=== PATIENT | female | born 1940 | race Caucasian/White ===

== ENCOUNTER 2019-10-29 00:41 | Day surgery (SDC) | payer OTHER, SELFPAY ==
[2019-10-28 14:42] VITALS: BMI 32.9
[2019-10-29] MEDS: LACTATED RINGERS 1,000 ML 150 ML IV CONT (07:54)
[2019-10-29 07:59] VITALS: BP 168/65; PULSE 80; RESP 18; TEMP 36.8; O2SAT 100; BMI 31.6
--- NOTE | 2019-10-29 08:09 | WPDANESEPPF ---
Anes - Initial Pre Proc Eval Procedure: Operation Date: 10/29/19 08:30 Proposed Procedures p Colonoscopy - Al Fernandez MD Date/Time: 10/29/19 08:09 Surgeon: Al Fernandez MD Pre Op Diagnosis: Pos Colorectal Screening-using cologuard test Patient Data Age: 78 Gender: F Height: 1.65 m Weight: 86.1 kg Last Vital Signs Temp 36.8 C 10/29/19 07:59 Pulse 80 10/29/19 07:59 Resp 18 10/29/19 07:59 BP 168/65 H 10/29/19 07:59 Pulse Ox 100 10/29/19 07:59 Allergies Allergy/AdvReac Type Severity Reaction Status Date / Time ciprofloxacin Allergy Severe Hypotension Verified 10/29/19 07:38 nitrofurantoin Allergy Severe Hypotension Verified 10/29/19 07:38 BENZIENE Allergy Mild Hives Uncoded 10/29/19 07:38 Home Medications Medication Instructions Recorded Confirmed Type levothyroxine 100 mcg tablet 100 mcg PO DAILY #90 tablet 10/21/19 10/29/19 Rx Patient hx anesthesia problems: none Family hx anesthesia problems: none PMFSH Past Medical History Medical History (Updated 10/29/19 @ 08:10 by Dio Pollock MD) Acquired hypothyroidism Obesity Positive colorectal cancer screening using Cologuard test Anes - Eval Final PreProcedure Day of Procedure 10/29/19 08:09 Patient weight: obese Heart: regular rate and rhythm Lungs: clear to auscultation and normal air movement Airway: Mallampati scale class II Neurological: alert and oriented Last oral intake: >/= 8 hours ASA classification: II Emergent: no Anesthetic plan: proceed Anesthesia type and monitoring: general GIVS Informed Consent: The patient's anesthetic plan and its attendant risks and benefits were discussed with the patient/family/POA. Questions were solicited and answers provided to the satisfaction of the patient/family/POA.
--- NOTE | 2019-10-29 08:23 | WPDHPUPDATE1 ---
History and Physical Update Update Date/Time: 10/29/19 08:23 History and Physical has been reviewed, including an updated exam of the patient. There are NO changes in the patient's condition. Risks, benefits, and alternatives have been discussed and questions answered. Patient agrees to proceed with procedure.
[2019-10-29 08:53] VITALS: BP 135/69; PULSE 68; RESP 19; O2SAT 95
[2019-10-29 09:03] VITALS: BP 145/76; PULSE 65; RESP 20; O2SAT 100
[2019-10-29 09:13] VITALS: BP 167/92; PULSE 62; RESP 19; O2SAT 100
== END 2019-10-29 09:30 | disposition home or self-care (01) ==
PROVIDERS: PCP Internal Medicine; Visit Provider Internal Medicine Gastroenterology
PROC: 0DJD8ZZ Inspection of Lower Intestinal Tract, Via Natural or Artificial Opening Endoscopic (ICD-10-PCS; CPT 45378; principal; 2019-10-29 08:30)
DX: Z12.11 Encounter for screening for malignant neoplasm of colon (principal); R19.5 Other fecal abnormalities; D12.0 Benign neoplasm of cecum; D12.3 Benign neoplasm of transverse colon; K57.30 Diverticulosis of large intestine without perforation or abscess without bleeding; K64.8 Other hemorrhoids; K64.4 Residual hemorrhoidal skin tags; E03.9 Hypothyroidism, unspecified; E66.9 Obesity, unspecified; Z68.31 Body mass index [BMI] 31.0-31.9, adult
CPT/HCPCS: 45380; 45385; 88305; J2704; J7120

== ENCOUNTER → 2020-12-03 10:58 | Outpatient (CLI) | payer OTHER, SELFPAY ==
--- NOTE | ~2020-12-03 | DEXA_ITS ---
Bone Density Report Name: Lakesha Muñoz Age: 80 Sex: Female Ethnicity: White Date of : 1940 Indication: osteopenia; height loss; hysterectomy; Referring Provider: JOJO HATHAWAY Study: Bone densitometry was performed. Exam Date: December 03, 2020 Accession number: [id number] Bone Density: Region BMD T-score Z-score Classification AP Spine (L1-L4) 1.029 -0.2 2.5 Normal Femoral Neck (Left) 0.657 -1.7 0.5 Osteopenia Total Hip (Left) 0.795 -1.2 0.8 Osteopenia Femoral Neck (Right) 0.654 -1.8 0.5 Osteopenia Total Hip (Right) 0.806 -1.1 0.9 Osteopenia Total Hip Mean 0.801 -1.2 0.9 Osteopenia World Health Organization criteria for BMD impression classify patients as: Normal (T-score at or above -1.0), Osteopenia (T-score between -1.0 and -2.5), or Osteoporosis (T-score at or below -2.5). 10-year Fracture Risk(1): Major Osteoporotic Fracture 13% Hip Fracture 3.3% Reported Risk Factors: [place] (), Neck BMD=0.654, BMI=32.2 (1) FRAX(R) Version 3.08. Fracture probability calculated for an untreated patient. Fracture probability may be lower if the patient has received treatment. Previous Exams: Region Exam Age BMD T-score BMD Change BMD Change Date g/cm2 vs Baseline vs Previous AP Spine(L1-L4) 12/03/2020 80 1.029 -0.2 0.014 0.014 10/29/2018 77 1.015 -0.3 Total Hip(Left) 12/03/2020 80 0.795 -1.2 0.010 0.010 10/29/2018 77 0.785 -1.3 Total Hip(Right) 12/03/2020 80 0.806 -1.1 0.047* 0.047* 10/29/2018 77 0.759 -1.5 *Denotes significance at 95% confidence level, LSC for AP Spine = 0.022 g/cm2, LSC for Total Hip = 0.027 g/cm2 Clinical Information Provided by Patient: Has used the following medications: Vitamin D, Calcium Has the following medical conditions: Hysterectomy Patient maximum height was 65 Menopause Age: 40 No regular weight bearing exercise Drinks caffeinated beverages Onset of menses at age 15 Number of children 4 Impression: The patient has low bone mass, based on the Right Femoral Neck T-score. The patient has an estimated ten-year risk of hip fracture of 3.3% and an estimated ten-year risk of major fracture of 13%, based on the WHO FRAX algorithm. No significant bone loss was observed. Discussion: BONE DENSITY IS LOW AT ONE OR MORE SKELETAL SITES. THE PATIENT'S BMD AND CLINICAL RISK FACTORS CONTRIBUTE TO THIS PATIENT'S INCREASED RISK OF FR
== END ==
PROVIDERS: PCP Internal Medicine; Visit Provider Internal Medicine
DX: M85.89 Other specified disorders of bone density and structure, multiple sites (principal)
CPT/HCPCS: 77080

== ENCOUNTER → 2021-03-08 10:23 | Outpatient (CLI) | payer OTHER, SELFPAY ==
--- NOTE | ~2021-03-08 | MM_ITS ---
EXAMINATION: MM screening zee BI w radha HISTORY: Screening mammogram, history of right breast cancer TECHNIQUE: Craniocaudal and mediolateral oblique 3-D tomosynthesis images were obtained and synthetic 2-D images were generated. CAD analysis was submitted and interpreted. COMPARISON: 10/02/2018, 07/13/2017, 06/26/2017, 03/23/2016 BREAST PARENCHYMAL COMPOSITION: There are scattered areas of fibroglandular density. FINDINGS: RIGHT BREAST: An asymmetry is present in the posterior third of the upper breast 7 cm from the nipple on the mediolateral oblique view just cranial to the area of surgical change. LEFT BREAST: There is no evidence of suspicious mass, calcification, or architectural distortion to s uggest malignancy. There has been no significant interval change. IMPRESSION: 1. Right breast asymmetry on the mediolateral oblique view. 2. Additional mammographic views and possible breast ultrasound are recommended. BI-RADS Category 0: Incomplete: Needs additional imaging evaluation. Reviewed, dictated and finalized at location A. IMPRESSION: 1. Right breast asymmetry on the mediolateral oblique view. 2. Additional mammographic views and possible breast ultrasound are recommended . BI-RADS Category 0: Incomplete: Needs additional imaging evaluation.
== END ==
PROVIDERS: PCP Internal Medicine; Visit Provider Internal Medicine
DX: Z12.31 Encounter for screening mammogram for malignant neoplasm of breast (principal); R92.8 Other abnormal and inconclusive findings on diagnostic imaging of breast
CPT/HCPCS: 77063; 77067

== ENCOUNTER → 2021-03-15 09:11 | Outpatient (CLI) | payer OTHER, SELFPAY ==
--- NOTE | ~2021-03-15 | MM_ITS ---
EXAMINATION: MM diagnostic mammo unilat RT HISTORY: Right breast asymmetry reported on 03/08/2021 screening mammogram MLO view TECHNIQUE: Additional 3-D tomosynthesis images of the right breast were performed and synthetic 2-D i mages were generated. CAD analysis was submitted and interpreted. COMPARISON: 03/08/2021, 10/02/2018 bilateral digital screening mammogram examinations 07/13/2017diagnostic right digital mammogram 06/26/2017bilateral digital screening mammogram FINDINGS: There is stable postsurgical change including surgical clips, benign calcifications, postsu rgical scarring and retraction involving the upper inner right breast, not significantly changed sinc e 06/26/2017. IMPRESSION: 1. Postoperative changes of right breast; no mammographic evidence of malignancy or significant day e since 06/26/2017 2. Routine annual mammographic screening is recommended BI-RADS Category 2: Benign finding(s). Reviewed, dictated and finalized at location A. IMPRESSION: 1. Postoperative changes of right breast; no mammographic evidence of malignanc y or significant change since 06/26/2017 2. Routine annual mammographic screening is recommended BI-RADS Category 2: Benign finding(s).
== END ==
PROVIDERS: PCP Internal Medicine; Visit Provider Nurse Practitioner
DX: R92.8 Other abnormal and inconclusive findings on diagnostic imaging of breast (principal); Z98.890 Other specified postprocedural states
CPT/HCPCS: 77065

== ENCOUNTER → 2022-06-04 10:37 | Outpatient (CLI) | payer OTHER, SELFPAY ==
--- NOTE | ~2022-06-04 | MR_ITS ---
EXAMINATION: MR cervical spine wo con DATE: 06/04/2022 11:42 INDICATION: Cervical radiculopathy. Neck pain. TECHNIQUE: Magnetic resonance imaging (MRI) of the cervical spine was performed without intravenous c ontrast. Sequences included sagittal T2-weighted FSE, sagittal T2-weighted FS FSE, sagittal T1-weight ed FSE, axial MERGE, and axial T2-weighted FSE. COMPARISON: Cervical spine radiographs 08/24/2017 FINDINGS: There is 8 degrees levocurvature of cervicothoracic spine. There is 2 mm anterolisthesis of C4 on C5 and 2 mm retrolisthesis of C5 on C6. Vertebral body heights are normal. There is mildly dec reased disc height at C3-C4 and moderately decreased disc height at C5-C6 and C6-C7. The spinal cord signal intensity is normal. The following disc levels are specifically discussed: C2-C3: The disc does not extend beyond the endplate margin. There is no uncovertebral joint osteoarth ritis. There is mild bilateral facet joint osteoarthritis. There is no neural foraminal stenosis. The re is no central canal stenosis. C3-C4: There is a central extrusion. There is mild bilateral uncovertebral joint osteoarthritis. Ther e is mild bilateral facet joint osteoarthritis. There is mild right neural foraminal stenosis. There is mild central canal stenosis. C4-C5: There is a central extrusion. There is no uncovertebral joint osteoarthritis. There is mild ri ght and severe left facet joint osteoarthritis. There is no neural foraminal stenosis. There is mild central canal stenosis with ventral indentation of the spinal cord. C5-C6: The disc is bulging. There is mild right and severe left uncovertebral joint osteoarthritis. T here is mild bilateral facet joint osteoarthritis. There is mild right and moderate left neural jaylene inal stenosis. There is mild central canal stenosis. C6-C7: The disc is bulging. There is mild right and severe left uncovertebral joint osteoarthritis. T here is moderate bilateral facet joint osteoarthritis. There is mild right and moderate left neural f oraminal stenosis. There is mild central canal stenosis. C7-T1: The disc does not extend beyond the endplate margin. There is no uncovertebral joint osteoarth ritis. There is mild bilateral facet joint osteoarthritis. There is mild bilateral neural foraminal s tenosis. There is no central canal stenosis. IMPRESSION: 1. Moderate cervical spondylosis. Reviewed, dictated and finalized at location A.
== END ==
PROVIDERS: PCP Internal Medicine; Visit Provider Nurse Practitioner Family
DX: M47.22 Other spondylosis with radiculopathy, cervical region (principal)
CPT/HCPCS: 72141

== ENCOUNTER → 2023-01-06 15:25 | Outpatient (CLI) | payer OTHER, SELFPAY ==
--- NOTE | ~2023-01-06 | DEXA_ITS ---
Bone Density Report Name: VICTOR MANUEL ALEJO Age: 82 Sex: Female Ethnicity: White Date of : 1940 Indication: osteopenia; height loss; hysterectomy; postmenopausal Referring Provider: MALIA RAZO Study: Bone densitometry was performed. Exam Date: January 06, 2023 Accession number: [id number] Bone Density: Region BMD T-score Z-score Classification AP Spine (L1-L4) 1.013 -0.3 2.4 Normal Femoral Neck (Left) 0.663 -1.7 0.7 Osteopenia Total Hip (Left) 0.766 -1.4 0.7 Osteopenia Femoral Neck (Right) 0.604 -2.2 0.1 Osteopenia Total Hip (Right) 0.744 -1.6 0.5 Osteopenia Total Hip Mean 0.755 -1.5 0.6 Osteopenia World Health Organization criteria for BMD impression classify patients as: Normal (T-score at or above -1.0), Osteopenia (T-score between -1.0 and -2.5), or Osteoporosis (T-score at or below -2.5). 10-year Fracture Risk(1): Major Osteoporotic Fracture 16% Hip Fracture 4.7% Reported Risk Factors: [place] (), Neck BMD=0.604, BMI=33.1 (1) FRAX(R) Version 3.08. Fracture probability calculated for an untreated patient. Fracture probability may be lower if the patient has received treatment. Previous Exams: Region Exam Age BMD T-score BMD Change BMD Change Date g/cm2 vs Baseline vs Previous AP Spine(L1-L4) 01/06/2023 82 1.013 -0.3 -0.003 -0.017 12/03/2020 80 1.029 -0.2 0.014 0.014 10/29/2018 77 1.015 -0.3 Total Hip(Left) 01/06/2023 82 0.766 -1.4 -0.019 -0.029* 12/03/2020 80 0.795 -1.2 0.010 0.010 10/29/2018 77 0.785 -1.3 Total Hip(Right) 01/06/2023 82 0.744 -1.6 -0.014 -0.062* 12/03/2020 80 0.806 -1.1 0.047* 0.047* 10/29/2018 77 0.759 -1.5 *Denotes significance at 95% confidence level, LSC for AP Spine = 0.022 g/cm2, LSC for Total Hip = 0.027 g/cm2 Clinical Information Provided by Patient: Has used the following medications: Vitamin D, Calcium Has the following medical conditions: Hysterectomy Patient maximum height was 65 Menopause Age: 40 No regular weight bearing exercise Drinks caffeinated beverages Onset of menses at age 15 Number of children 4 Impression: The patient has low bone mass, based on the Right Femoral Neck T-score. The patient has an estimated ten-year risk of hip fracture of 4.7% and an estimated ten-year risk of major fracture of 16%, based on the WHO FRAX
== END ==
PROVIDERS: PCP Emergency Medicine; Visit Provider Emergency Medicine
DX: M15.0 Primary generalized (osteo)arthritis (principal); M81.0 Age-related osteoporosis without current pathological fracture; Z12.31 Encounter for screening mammogram for malignant neoplasm of breast; Z78.0 Asymptomatic menopausal state
CPT/HCPCS: 77080

== ENCOUNTER 2023-12-04 15:02 | Outpatient (CLI) | payer OTHER, SELFPAY ==
--- NOTE | ~2023-12-04 | MM_ITS ---
EXAMINATION: MM screening zee BI w radha HISTORY: Screening mammogram TECHNIQUE: Craniocaudal and mediolateral oblique 3-D tomosynthesis images were obtained and synthetic 2-D images were generated. CAD analysis was submitted and interpreted. COMPARISON: 03/15/2021 diagnostic right mammogram 03/08/2021, 10/02/2018 bilateral screening mammogram examinations BREAST PARENCHYMAL COMPOSITION: There are scattered areas of fibroglandular density. FINDINGS: Status post right partial mastectomy for breast cancer. There is stable calcification, scar ring of the right breast. There is no evidence of suspicious mass, calcification, or architectural di stortion to suggest malignancy in either breast. There has been no suspicious interval change. IMPRESSION: 1. No status post right partial mastectomy for breast cancer. Mammographic evidence of malignancy. 2. Recommend routine screening mammography in one year. BI-RADS Category 2: Benign finding(s). Reviewed, dictated and finalized at location A. IMPRESSION: 1. No status post right partial mastectomy for breast cancer. Mammographic evid ence of malignancy. 2. Recommend routine screening mammography in one year. BI-RADS Category 2: Benign finding(s).
== END 2023-12-04 15:03 ==
LOC: MICIMG 15:03
PROVIDERS: PCP Emergency Medicine; Visit Provider Emergency Medicine
DX: Z12.31 Encounter for screening mammogram for malignant neoplasm of breast (principal); R92.8 Other abnormal and inconclusive findings on diagnostic imaging of breast; M15.0 Primary generalized (osteo)arthritis; Z90.11 Acquired absence of right breast and nipple
CPT/HCPCS: 77063; 77067

== ENCOUNTER 2025-02-05 14:10 | Outpatient (CLI) | payer OTHER, SELFPAY ==
--- NOTE | ~2025-02-05 | MM_ITS ---
EXAMINATION: MM screening zee BI w radha HISTORY: Screening TECHNIQUE: Craniocaudal and mediolateral oblique 3-D tomosynthesis images were obtained and synthetic 2-D images were generated. CAD analysis was submitted and interpreted. COMPARISON: Comparison to multiple prior studies sequentially, with oldest reviewed study dated 06/25. BREAST PARENCHYMAL COMPOSITION: Not dense: There are scattered areas of fibroglandular density. FINDINGS: There is distortion of the right breast, consistent with prior lumpectomy. There is no evid ence of suspicious mass, calcification, or architectural distortion to suggest malignancy in either b reast. There has been no suspicious interval change. IMPRESSION: 1. No mammographic evidence of malignancy. 2. Recommend routine screening mammography in one year. BI-RADS Category 1: Negative Reviewed, dictated and finalized at location A.
--- NOTE | ~2025-02-05 | DEXA_ITS ---
Bone Density Report Name: VICTOR MANUEL ALEJO Age: 84 Sex: Female Ethnicity: White Date of : 1940 Indication: osteopenia; height loss; cancer; hysterectomy; Referring Provider: MALIA RAZO Study: Bone densitometry was performed. Exam Date: February 05, 2025 Accession number: [id number] Bone Density: Region BMD T-score Z-score Classification AP Spine(L1-L4) 1.065 0.2 3.0 Normal Femoral Neck (Left) 0.614 -2.1 0.3 Osteopenia Total Hip (Left) 0.714 -1.9 0.4 Osteopenia Femoral Neck (Right) 0.627 -2.0 0.4 Osteopenia Total Hip (Right) 0.712 -1.9 0.4 Osteopenia Total Hip Mean 0.713 -1.9 0.4 Osteopenia World Health Organization criteria for BMD impression classify patients as: Normal (T-score at or above -1.0), Osteopenia (T-score between -1.0 and -2.5), or Osteoporosis (T-score at or below -2.5). 10-year Fracture Risk(1): Major Osteoporotic Fracture 15% Hip Fracture 4.6% Reported Risk Factors: [place] (), Neck BMD=0.614, BMI=33.1 (1) FRAX(R) Version 3.08. Fracture probability calculated for an untreated patient. Fracture probability may be lower if the patient has received treatment. Previous Exams: -- Region Exam Age BMD T-score BMD Change BMD Change Date g/cm2 vs Baseline vs Previous -- AP Spine (L1-L4) 02/05/2025 84 1.065 0.2 4.9%* 5.1%* 01/06/2023 82 1.013 -0.3 -0.3% -1.6% 12/03/2020 80 1.029 -0.2 1.4% 1.4% 10/29/2018 77 1.015 -0.3 Total Hip(Left) 02/05/2025 84 0.714 -1.9 -9.0%* -6.7%* 01/06/2023 82 0.766 -1.4 -2.4% -3.6%* 12/03/2020 80 0.795 -1.2 1.3% 1.3% 10/29/2018 77 0.785 -1.3 Total Hip(Right) 02/05/2025 84 0.712 -1.9 -6.1%* -4.3%* 01/06/2023 82 0.744 -1.6 -1.9% -7.7%* 12/03/2020 80 0.806 -1.1 6.2%* 6.2%* 10/29/2018 77 0.759 -1.5 -- *Denotes significance at 95% confidence level, LSC for AP Spine = 0.022 g/cm2, LSC for Total Hip = 0.027 g/cm2 Clinical Information Provided by Patient: Has used the following medications: Fosamax (i.e. alendronate), Vitamin D, Calcium, fosamax in the past Has the following medical conditions: Cancer, Hysterectomy, breast cancer 1996 Patient maximum height was 66 Menopause Age: 40 No regular weight bearing exercise Drinks caffeinated beverages Onset of menses at age 15 Number of children 4 Impression: The patient has low bone mass, based on the Left Femoral Neck T-score. The patient has an estimated ten-year risk of hip fracture of 4.6% and an estimated ten-year risk of major fracture of 15%, based on the WHO FRAX algorithm. The BMD for the Total Hip(Left) decreased, changing by -6.7% since the last DXA exam. The BMD for the Total Hip(Right) decreased, changing by -4.3% since the last DXA exam. Discussion: BONE DENSITY IS LOW AT ONE OR MORE SKELETAL SITES. THE PATIENT'S BMD AND CLINICAL RISK FACTORS CONTRIBUTE TO THIS PATIENT'S INCREASED RISK OF FRACTURE. This patient's lowest T-score is low at one or more skeletal sites. It meets the World Health Organization's (WHO) criteria for “low bone mass” (T-score between -1.0 and -2.5). The patient's 10-year risk of hip fracture as calculated by FRAX exceeds the threshold where pharmacological therapy is recommended by the National Osteoporosis Foundation (NOF). However, all treatment decisions require clinical judgment and consideration of individual patient factors, including patient preferences, comorbidities, previous drug use, risk factors not captured in the FRAX model (e.g., frailty, falls, vitamin D deficiency, increased bone turnover, interval significant decline in bone density) and possible under or overestimation of fracture risk by FRAX. The patient should follow a healthful lifestyle (good nutrition with adequate calcium and vitamin D, and appropriate weight-bearing exercise). Follow-Up: Consider a repeat BMD and Vertebral Fracture Assessment (VFA) exam in 2 years or sooner if medically necessary, to reassess this patient's status. Reported by: AMIRA on 02/12/2025 8:45:00 AM. Reviewed, dictated and finalized at location A.
== END 2025-02-05 14:11 | disposition home or self-care (01) ==
PROVIDERS: PCP Emergency Medicine; Visit Provider Emergency Medicine
DX: Z12.31 Encounter for screening mammogram for malignant neoplasm of breast (principal); M85.89 Other specified disorders of bone density and structure, multiple sites; Z78.0 Asymptomatic menopausal state
CPT/HCPCS: 77063; 77067; 77080

== ENCOUNTER 2025-08-29 10:47 | Outpatient (CLI) | payer OTHER, SELFPAY ==
--- NOTE | ~2025-08-29 | XR_ITS ---
EXAMINATION: [id number], 08/29/2025 11:00 ACCOUNTS RECEIVABLE ADMINISTRATOR HISTORY: M25.561 - Pain in right knee COMPARISON: No comparisons available. Findings: No acute fracture or malalignment. Moderate to severe tricompartmental degenerative changes, small effusion Soft tissues unremarkable. Impression: No acute fracture or malalignment. Reviewed, dictated and finalized at location P. UNTS RECEIVABLE ADMINISTRATOR Impression: No acute fracture or malalignment.
--- NOTE | ~2025-08-29 | US_ITS ---
RIGHT LOWER EXTREMITY VENOUS DUPLEX Clinical History: M79.661 - Pain in right lower leg COMPARISON: None TECHNIQUE: Grayscale, color, duplex/spectral Doppler sonography right leg FINDINGS: Right leg common femoral, femoral, popliteal, and calf veins compressible and color Doppler patent. Normal augmentation with distal compression. No internal echoes. IMPRESSION: 1. No right leg DVT. Reviewed, dictated and finalized at location R. P BURNER MACHINE IMPRESSION: 1. No right leg DVT.
== END 2025-08-29 10:48 | disposition home or self-care (01) ==
PROVIDERS: PCP Emergency Medicine; Visit Provider Emergency Medicine
DX: M79.661 Pain in right lower leg (principal); M25.561 Pain in right knee
CPT/HCPCS: 73560; 93971